=== PATIENT | male | born 1955 | race Caucasian/White ===

== ENCOUNTER → 2017-05-26 | Outpatient (CLI) | payer OTHER ==
[~2017-05-26] MED LIST: BENTYL10 MG PO; CYCLOBENZAPRINE10 MG PO; EFFEXOR75 MG PO; ENBREL50 MG/1 ML SC; ENDOCET 5-3251 EACH PO; FLOVENT DISKUS1 DIS2 IH; FOLIC ACID1 MG PO; MOBIC15 MG PO; PERCOCET 5/31 TABLET PO; PRAVACHOL40 MG PO; TREXALL15 MG PO; XALATAN2.5 ML BOTH EYES
== END | disposition home or self-care (01) ==
DX: M25.561 Pain in right knee (principal); M25.661 Stiffness of right knee, not elsewhere classified; R26.2 Difficulty in walking, not elsewhere classified; M62.81 Muscle weakness (generalized); M17.11 Unilateral primary osteoarthritis, right knee
CPT/HCPCS: 97161 GP; 97165 GO; 97530 GP; 97537 GO

== ENCOUNTER 2017-06-22 21:20 | Inpatient (IN) | payer OTHER ==
[~2017-06-22] VITALS: Ht 185.4 cm; Wt 109.9 kg
[~2017-06-22 21:20] MED LIST changes: +HYDROCHLOROTHIA50 MG PO
[2017-06-23 06:08] VITALS: BP 142/88
[2017-06-23 10:45] VITALS: BP 123/66
[2017-06-23 12:57] VITALS: BP 122/57
[2017-06-23 16:01] VITALS: BP 118/61
[2017-06-23 18:00] VITALS: BP 130/65
[2017-06-23 20:50] VITALS: BP 140/80
[2017-06-24 00:15] VITALS: BP 132/65
[2017-06-24 04:20] VITALS: BP 155/84
[2017-06-24 06:56] LABS: HEMATOCRIT 40.9 % (38.0-50.0); MCV 92.5 FL (86-99)
[2017-06-24 07:29] LABS: ANION GAP 7 MEQ/L (2-14); CHLORIDE 101 MEQ/L (99-109); GFR ESTIMATE (CALCULATED) > 59 mL/min/ (58.99-99999); GLUCOSE 112 mg/dL (70-99); POTASSIUM 3.8 MEQ/L (3.7-5.4); SAMPLE HEMOLYSIS CHECK 0; SAMPLE ICTERIC CHECK 0; SAMPLE LIPEMIA CHECK 0; SODIUM 141 MEQ/L (136-147); UREA NITROGEN (BUN) 21 mg/dL (9-23)
[2017-06-24 12:00] VITALS: BP 154/71
[2017-06-24 15:45] VITALS: BP 129/72
[2017-06-24 20:20] VITALS: BP 140/67
[2017-06-25] VITALS: BP 125/67
[2017-06-25 04:10] VITALS: BP 141/68
[2017-06-25 06:24] LABS: MCV 90.5 FL (86-99)
[2017-06-25] MEDS ORDERED: SENNA PLUS TAB1 EACH PO (08:13)
[2017-06-25] MEDS ORDERED: NORCO 5/3251 TABLET PO (08:15)
[2017-06-25] MEDS ORDERED: ELIQUIS2.5 MG PO (08:15)
[2017-06-25 08:27] VITALS: BP 137/65
[2017-06-25 12:03] VITALS: BP 133/76
== END 2017-06-25 13:42 | DRG 470 ==
LOC: ENRESERV 21:20 → 2SOUTH 06-23 05:29 → 3WEST 06-23 10:35 → 2SOUTH 06-23 10:45 → 3WEST 06-25 13:42
PROVIDERS: Orthopaedic Surgery
PROC: 0SRC0J9 Replacement of Right Knee Joint with Synthetic Substitute, Cemented, Open Approach (ICD-10-PCS; principal; 2017-06-23)
DX: M06.9 Rheumatoid arthritis, unspecified (principal); M17.11 Unilateral primary osteoarthritis, right knee; I10 Essential (primary) hypertension; E78.00 Pure hypercholesterolemia, unspecified; F41.9 Anxiety disorder, unspecified; Z98.1 Arthrodesis status; Z88.5 Allergy status to narcotic agent; Z88.1 Allergy status to other antibiotic agents; Z87.891 Personal history of nicotine dependence; Z85.46 Personal history of malignant neoplasm of prostate
CPT/HCPCS: 80048; 85014; 85018; C1713; J0131; J0690; J1885; J2250; J2405; J3010; J7030; J7050; J7120